=== PATIENT | male | born 1985 | race African-American/Black ===

== ENCOUNTER 2021-07-21 13:47 | Emergency (ER) | payer MEDICAID ==
[~2021-07-21] VITALS: Ht 165.1 cm; Wt 82.0 kg
[2021-07-21] MEDS ORDERED: MINERAL OIL 30ML BOTTLE PO ONE (14:30)
[2021-07-21] MEDS ORDERED: POLYETHYLENE GLYCOL-ELECTROLYTE 4000ML PO ONE (14:30)
[2021-07-21] MEDS ORDERED: POLYETHYLENE GLYCOL 3350 (17GM) 1 DOSE PACK PO ONE (14:30)
[2021-07-21] MEDS ORDERED: DOCUSATE SODIUM 250MG CAPSULE PO ONE (14:30)
[2021-07-21 15:13] LABS: BASOPHILS % 0.6 % (0.0-2.0); EOSINOPHILS % 1.2 % (0.0-5.0); HEMATOCRIT. 47.7 % (42.0-52.0); HEMOGLOBIN. 16.7 g/dL (14.0-18.0); LYMPHOCYTES % 13.7 % (20.0-50.0); MEAN CORPUSCULAR HEMOGLOBIN 29.2 pg (28.0-32.0); MEAN CORPUSCULAR VOLUME 83.3 fL (80.0-94.0); MEAN PLATELET VOLUME 8.7 fl (7.4-10.4); MONOCYTES % 7.4 % (2.0-8.0); NEUTROPHILS % 77.1 % (40.0-76.0); PLATELET 214 x1000/uL (130-400); RED BLOOD CELL COUNT 5.73 mill/uL (4.7-6.1); RED CELL DISTRIBUTION WIDTH 13.7 % (11.6-14.6)
[2021-07-21 15:19] LABS: CHLORIDE 106 mEq/L (98-107)
[2021-07-21] MEDS ORDERED: NA PHOS,M-B/NA PHOS,DI-BA ENEMA 118ML PR ONE (15:30)
[2021-07-21] MEDS ORDERED: KETOROLAC 60MG/2ML VIAL IM ONE (16:30)
[2021-07-21] MEDS ORDERED: ACETAMINOPHEN 325MG TABLET PO ONE (16:30)
[2021-07-21] MEDS ORDERED: DOCU-138 MT ×2 (16:32)
[2021-07-21] MEDS ORDERED: SENN8.6T21 MT (16:34)
[2021-07-21] MEDS ORDERED: SODIUM CHLORIDE 0.9% 1,000 ML IV ONE (17:15)
[2021-07-21] MEDS ORDERED: FENTANYL CITRATE/PF 50MCG/ML 2ML VIAL IV ONE (17:15)
[2021-07-21 17:52] LABS: CLARITY URINE CLEAR (CLEAR); COLOR URINE YELLOW (YELLOW); KETONES URINE NEGATIVE (NEGATIVE); LEUKOCYTE ESTERASE URINE NEGATIVE (NEGATIVE); NITRITE URINE NEGATIVE (NEGATIVE); OCCULT BLOOD URINE NEGATIVE (NEGATIVE); PH URINE 7.5 (4.5-8.0); PROTEIN URINE 1+ (NEGATIVE); SPECIFIC GRAVITY URINE 1.021 (1.005-1.030)
[2021-07-21] MEDS ORDERED: IBUP-2029 MT (18:19)
[2021-07-21 19:55] VITALS: BP 132/79
== END 2021-07-21 19:57 | disposition home or self-care (01) ==
LOC: ER 13:47
DX: K59.00 Constipation, unspecified (principal); R10.32 Left lower quadrant pain
CPT/HCPCS: 36415; 74176; 80048; 81003; 85025; 96361; 96372; 96374; 99285; J1885; J3010; J7030; Z7610